=== PATIENT | male | born 1975 | race Caucasian/White ===

== ENCOUNTER 2020-03-22 14:13 | Inpatient (IN) | payer MEDICAID ==
[~2020-03-22] VITALS: Ht 152.4 cm; Wt 52.4 kg
[2020-03-22 15:36] LABS: CHLORIDE 97 mEq/L (98-107)
[2020-03-22 15:55] LABS: BASOPHILS % 0.2 % (0.0-2.0); EOSINOPHILS % 0.1 % (0.0-5.0); HEMATOCRIT. 40.2 % (42.0-52.0); HEMOGLOBIN. 14.6 g/dL (14.0-18.0); LYMPHOCYTES % 9.5 % (20.0-50.0); MEAN CORPUSCULAR HEMOGLOBIN 32.8 pg (28.0-32.0); MEAN CORPUSCULAR VOLUME 90.3 fL (80.0-94.0); MONOCYTES % 7.9 % (2.0-8.0); NEUTROPHILS % 82.3 % (40.0-76.0); PLATELET 326 x1000/uL (130-400); RED BLOOD CELL COUNT 4.45 mill/uL (4.7-6.1); RED CELL DISTRIBUTION WIDTH 13.8 % (11.6-14.6)
[2020-03-22 20:53] VITALS: BP 110/67
[2020-03-22] MEDS ORDERED: LORAZEPAM 2MG/ML CPJ IV PRN (21:00)
[2020-03-22] MEDS ORDERED: DOCUSATE SODIUM 100MG CAPSULE PO PRN (21:00)
[2020-03-22] MEDS ORDERED: HYDRALAZINE 20MG/ML VIAL IV PRN (21:00)
[2020-03-22] MEDS ORDERED: ONDANSETRON HCL 4MG/2ML INJ IV PRN (21:00)
[2020-03-22] MEDS ORDERED: CLONIDINE 0.1MG TABLET PO PRN (21:00)
[2020-03-22] MEDS ORDERED: DIPHENHYDRAMINE 50MG/ML VIAL IV PRN (21:00)
[2020-03-22] MEDS ORDERED: ACETAMINOPHEN 325MG TABLET PO PRN (21:00)
[2020-03-22] MEDS ORDERED: IPRATROPIUM/ALBUTEROL 0.5-3(2.5)MG/3ML NEB HHN PRN (21:00)
[2020-03-22] MEDS ORDERED: HYDROCODONE/ACETAMINOPHEN 10/325MG TABLET PO PRN (21:00)
[2020-03-22 22:00] VITALS: BP 118/67
[2020-03-22] MEDS ORDERED: ENOXAPARIN 40MG/0.4ML SYR SUBCUT SCH (22:00)
[2020-03-22] MEDS: CEFTRIAXONE 1 G PREMIX 50 ML IV SCH (22:53)
[2020-03-22] MEDS: SODIUM CHLORIDE 0.9% INJ 3ML FLUSH IVF SCH (22:55)
[2020-03-22] MEDS ORDERED: AZITHROMYCIN 500 MG in DEXT 5% WATER 250 ML IV NR (23:00)
[2020-03-23] VITALS: BP 119/65
[2020-03-23 04:00] VITALS: BP 100/58
[2020-03-23] MEDS: MORPHINE SULFATE 2 MG/ML CPJ (NOT FOR IM USE) IV PRN (06:03)
[2020-03-23] MEDS: SODIUM CHLORIDE 0.9% INJ 3ML FLUSH IVF SCH ×3 (06:10→22:06)
[2020-03-23 06:57] LABS: CHLORIDE 102 mEq/L (98-107)
[2020-03-23 08:00] VITALS: BP 99/54
[2020-03-23 08:40] LABS: HEMATOCRIT. 40.5 % (42.0-52.0); HEMOGLOBIN. 14.7 g/dL (14.0-18.0); MEAN CORPUSCULAR HEMOGLOBIN 33.4 pg (28.0-32.0); MEAN PLATELET VOLUME 8.9 fl (7.4-10.4); PLATELET 314 x1000/uL (130-400); RED BLOOD CELL COUNT 4.41 mill/uL (4.7-6.1); RED CELL DISTRIBUTION WIDTH 13.7 % (11.6-14.6)
[2020-03-23 12:00] VITALS: BP 100/64
[2020-03-23] MEDS: ALBUTEROL 6.7GM HFA INHALER ORI SCH (12:00)
[2020-03-23 12:24] LABS: D-DIMER 0.6 mg/L FEU (<0.50); INR 1.1; PROTHROMBIN TIME 11.2 sec (9.6-11.0)
[2020-03-23] MEDS: DEXAMETHASONE 2MG TABLET PO SCH (13:11)
[2020-03-23] MEDS ORDERED: ENOXAPARIN 80MG/0.8ML SYR SUBCUT SCH (14:00)
[2020-03-23 16:00] VITALS: BP 103/65
[2020-03-23] MEDS: GUAIFENESIN 200MG/10ML SUGAR FREE UDC PO PRN (18:15)
[2020-03-23 20:00] VITALS: BP 109/67
[2020-03-23] MEDS: CEFTRIAXONE 1 G PREMIX 50 ML IV SCH (22:06)
[2020-03-23] MEDS: AZITHROMYCIN 250 MG in DEXT 5% WATER 250 ML IV SCH (22:07)
[2020-03-24] VITALS: BP 111/68
[2020-03-24] MEDS: MORPHINE SULFATE 2 MG/ML CPJ (NOT FOR IM USE) IV PRN ×3 (03:16→23:28)
[2020-03-24 04:00] VITALS: BP 116/62
[2020-03-24] MEDS: SODIUM CHLORIDE 0.9% INJ 3ML FLUSH IVF SCH ×3 (05:01→21:32)
[2020-03-24 08:00] VITALS: BP 120/63
[2020-03-24] MEDS: ALBUTEROL 6.7GM HFA INHALER ORI SCH ×2 (09:40→21:00)
[2020-03-24] MEDS: DEXAMETHASONE 2MG TABLET PO SCH (09:56)
[2020-03-24 10:38] LABS: PLATELET ESTIMATE NORMAL
[2020-03-24 12:00] VITALS: BP 106/57
[2020-03-24] MEDS: ENOXAPARIN 80MG/0.8ML SYR SUBCUT SCH ×2 (14:32→23:27)
[2020-03-24 16:09] VITALS: BP 103/63
[2020-03-24 20:00] VITALS: BP 126/79
[2020-03-24] MEDS: CEFTRIAXONE 1 G PREMIX 50 ML IV SCH (21:07)
[2020-03-24] MEDS: AZITHROMYCIN 250 MG in DEXT 5% WATER 250 ML IV SCH (21:32)
[2020-03-24] MEDS: GUAIFENESIN 200MG/10ML SUGAR FREE UDC PO PRN (23:27)
[2020-03-25] VITALS (7 sets, daily range): BP systolic 91–114; BP diastolic 51–68
[2020-03-25] MEDS: ALBUTEROL 6.7GM HFA INHALER ORI SCH ×4 (02:30→17:31)
[2020-03-25] MEDS: SODIUM CHLORIDE 0.9% INJ 3ML FLUSH IVF SCH ×3 (05:18→21:22)
[2020-03-25] MEDS: MAGNESIUM/ALUMINUM HYDROXIDE/SIMETHICONE 30ML UDC PO PRN (05:23)
[2020-03-25 07:08] LABS: CHLORIDE 97 mEq/L (98-107)
[2020-03-25 07:14] LABS: EOSINOPHILS % 0.4 % (0.0-5.0); HEMATOCRIT. 40.3 % (42.0-52.0); HEMOGLOBIN. 14.5 g/dL (14.0-18.0); LYMPHOCYTES % 16.1 % (20.0-50.0); MEAN CORPUSCULAR HEMOGLOBIN 32.6 pg (28.0-32.0); MEAN CORPUSCULAR VOLUME 90.6 fL (80.0-94.0); MEAN PLATELET VOLUME 8.1 fl (7.4-10.4); MONOCYTES % 8.6 % (2.0-8.0); NEUTROPHILS % 74.9 % (40.0-76.0); PLATELET 418 x1000/uL (130-400); RED BLOOD CELL COUNT 4.44 mill/uL (4.7-6.1); RED CELL DISTRIBUTION WIDTH 13.5 % (11.6-14.6)
[2020-03-25] MEDS: ENOXAPARIN 80MG/0.8ML SYR SUBCUT SCH ×2 (08:22→21:22)
[2020-03-25] MEDS: DEXAMETHASONE 2MG TABLET PO SCH (08:23)
[2020-03-25 13:59] LABS: CLARITY URINE CLEAR (CLEAR); COLOR URINE YELLOW (YELLOW); KETONES URINE NEGATIVE (NEGATIVE); LEUKOCYTE ESTERASE URINE NEGATIVE (NEGATIVE); NITRITE URINE NEGATIVE (NEGATIVE); OCCULT BLOOD URINE NEGATIVE (NEGATIVE); PROTEIN URINE NEGATIVE (NEGATIVE); SPECIFIC GRAVITY URINE 1.015 (1.005-1.030); UROBILINOGEN URINE 0.2 E.U./dL (0.2-1.0)
[2020-03-25 14:22] LABS: *AMPHETAMINES SCREEN URINE NEGATIVE (NEGATIVE); *BARBITURATES SCREEN URINE NEGATIVE (NEGATIVE); *BENZODIAZEPINES SCREEN URINE NEGATIVE (NEGATIVE)
[2020-03-25 14:23] LABS: *COCAINE SCREEN URINE NEGATIVE (NEGATIVE); CANNABINOID URINE SCREEN NEGATIVE (NEGATIVE); METHADONE URINE SCREEN NEGATIVE (NEGATIVE); OPIATES URINE SCREEN PRESUMTIVE POSITIVE (NEGATIVE); PHENCYCLIDINE URINE SCREEN NEGATIVE (NEGATIVE)
[2020-03-25] MEDS: GUAIFENESIN 200MG/10ML SUGAR FREE UDC PO PRN (18:08)
[2020-03-25] MEDS: AZITHROMYCIN 250 MG in DEXT 5% WATER 250 ML IV SCH (20:11)
[2020-03-25] MEDS: CEFTRIAXONE 1 G PREMIX 50 ML IV SCH (21:21)
[2020-03-26] VITALS: BP 92/51
[2020-03-26] MEDS: ALBUTEROL 6.7GM HFA INHALER ORI SCH ×4 (00:17→18:24)
[2020-03-26 04:00] VITALS: BP 101/60
[2020-03-26] MEDS: SODIUM CHLORIDE 0.9% INJ 3ML FLUSH IVF SCH ×3 (05:28→21:55)
[2020-03-26 08:00] VITALS: BP 100/59
[2020-03-26] MEDS: DEXAMETHASONE 2MG TABLET PO SCH (08:52)
[2020-03-26] MEDS: ENOXAPARIN 80MG/0.8ML SYR SUBCUT SCH ×2 (08:52→20:25)
[2020-03-26 12:00] VITALS: BP 97/55
[2020-03-26] MEDS ORDERED: POLYVINYL ALCOHOL OPHTH DROPS 15ML BOTHEYE PRN (12:00)
[2020-03-26 16:00] VITALS: BP 114/62
[2020-03-26 20:00] VITALS: BP 111/72
[2020-03-26] MEDS: CEFTRIAXONE 1 G PREMIX 50 ML IV SCH (20:23)
[2020-03-26] MEDS: AZITHROMYCIN 250 MG in DEXT 5% WATER 250 ML IV SCH (20:24)
[2020-03-27] VITALS: BP 102/60
[2020-03-27] MEDS: ALBUTEROL 6.7GM HFA INHALER ORI SCH ×4 (00:47→23:51)
[2020-03-27 04:00] VITALS: BP 103/64
[2020-03-27] MEDS: SODIUM CHLORIDE 0.9% INJ 3ML FLUSH IVF SCH ×3 (05:58→21:43)
[2020-03-27 08:00] VITALS: BP 92/57
[2020-03-27] MEDS: DEXAMETHASONE 2MG TABLET PO SCH (09:17)
[2020-03-27] MEDS: ENOXAPARIN 80MG/0.8ML SYR SUBCUT SCH (09:17)
[2020-03-27 12:00] VITALS: BP 101/61
[2020-03-27 16:00] VITALS: BP 99/65
[2020-03-27 20:00] VITALS: BP 107/69
[2020-03-27] MEDS: ENOXAPARIN 60MG/0.6ML SYR SUBCUT SCH (20:41)
[2020-03-28 00:05] VITALS: BP 104/66
[2020-03-28 04:00] VITALS: BP 110/66
[2020-03-28] MEDS: ALBUTEROL 6.7GM HFA INHALER ORI SCH ×3 (05:36→18:44)
[2020-03-28 08:00] VITALS: BP 101/63
[2020-03-28] MEDS: ENOXAPARIN 60MG/0.6ML SYR SUBCUT SCH ×2 (08:19→20:37)
[2020-03-28] MEDS: DEXAMETHASONE 2MG TABLET PO SCH (10:33)
[2020-03-28 12:00] VITALS: BP 105/66
[2020-03-28] MEDS ORDERED: REMDESIVIR 200 MG in SODIUM CHLORIDE 0.9% 250 ML IV NR (15:30)
[2020-03-28 16:00] VITALS: BP 108/66
[2020-03-28] MEDS: SODIUM CHLORIDE 0.9% INJ 3ML FLUSH IVF SCH ×2 (16:42→20:37)
[2020-03-28 20:00] VITALS: BP 109/63
[2020-03-29] VITALS: BP 112/64
[2020-03-29] MEDS: ALBUTEROL 6.7GM HFA INHALER ORI SCH ×4 (00:22→17:14)
[2020-03-29 04:00] VITALS: BP 113/59
[2020-03-29] MEDS: SODIUM CHLORIDE 0.9% INJ 3ML FLUSH IVF SCH ×3 (05:09→21:16)
[2020-03-29 08:00] VITALS: BP 109/60
[2020-03-29 08:41] LABS: CHLORIDE 104 mEq/L (98-107)
[2020-03-29] MEDS: DEXAMETHASONE 2MG TABLET PO SCH (09:24)
[2020-03-29] MEDS: ENOXAPARIN 60MG/0.6ML SYR SUBCUT SCH ×2 (09:25→21:16)
[2020-03-29 12:30] VITALS: BP 112/54
[2020-03-29] MEDS: REMDESIVIR 100 MG in SODIUM CHLORIDE 0.9% 250 ML IV SCH (14:10)
[2020-03-29 15:58] VITALS: BP 108/62
[2020-03-29 20:00] VITALS: BP 113/66
[2020-03-30] VITALS: BP 103/61
[2020-03-30] MEDS: ALBUTEROL 6.7GM HFA INHALER ORI SCH ×4 (00:12→18:42)
[2020-03-30 04:00] VITALS: BP 96/53
[2020-03-30] MEDS: SODIUM CHLORIDE 0.9% INJ 3ML FLUSH IVF SCH ×3 (05:45→20:45)
[2020-03-30 08:00] VITALS: BP 103/53
[2020-03-30 08:23] LABS: CHLORIDE 102 mEq/L (98-107)
[2020-03-30] MEDS: DEXAMETHASONE 2MG TABLET PO SCH (09:44)
[2020-03-30] MEDS: ENOXAPARIN 60MG/0.6ML SYR SUBCUT SCH ×2 (09:44→20:44)
[2020-03-30 12:00] VITALS: BP 102/52
[2020-03-30] MEDS: REMDESIVIR 100 MG in SODIUM CHLORIDE 0.9% 250 ML IV SCH (15:06)
[2020-03-30 16:00] VITALS: BP 116/64
[2020-03-30 20:00] VITALS: BP 100/55
[2020-03-31] VITALS: BP 107/66
[2020-03-31] MEDS: ALBUTEROL 6.7GM HFA INHALER ORI SCH ×5 (00:03→23:49)
[2020-03-31 04:00] VITALS: BP 94/53
[2020-03-31] MEDS: SODIUM CHLORIDE 0.9% INJ 3ML FLUSH IVF SCH ×3 (05:14→21:21)
[2020-03-31 07:23] LABS: CHLORIDE 104 mEq/L (98-107)
[2020-03-31 08:00] VITALS: BP 103/51
[2020-03-31] MEDS: DEXAMETHASONE 2MG TABLET PO SCH (08:18)
[2020-03-31] MEDS: ENOXAPARIN 60MG/0.6ML SYR SUBCUT SCH ×2 (08:18→21:21)
[2020-03-31 11:46] VITALS: BP_SYST 103; BP_SYST 96; BP_DIAS 63; BP_DIAS 82
[2020-03-31] MEDS: REMDESIVIR 100 MG in SODIUM CHLORIDE 0.9% 250 ML IV SCH (15:00)
[2020-03-31 20:00] VITALS: BP 112/59
[2020-04-01] VITALS: BP 118/65
[2020-04-01 04:00] VITALS: BP 99/49
[2020-04-01] MEDS: SODIUM CHLORIDE 0.9% INJ 3ML FLUSH IVF SCH ×2 (05:18→13:01)
[2020-04-01] MEDS: ALBUTEROL 6.7GM HFA INHALER ORI SCH ×3 (05:18→17:11)
[2020-04-01 08:00] VITALS: BP 94/53
[2020-04-01 08:16] LABS: CHLORIDE 104 mEq/L (98-107)
[2020-04-01] MEDS: DEXAMETHASONE 2MG TABLET PO SCH (09:47)
[2020-04-01] MEDS: ENOXAPARIN 60MG/0.6ML SYR SUBCUT SCH (09:48)
[2020-04-01 10:32] LABS: BASOPHILS % 0.2 % (0.0-2.0); EOSINOPHILS % 0.2 % (0.0-5.0); HEMATOCRIT. 37.2 % (42.0-52.0); HEMOGLOBIN. 13.2 g/dL (14.0-18.0); LYMPHOCYTES % 22.8 % (20.0-50.0); MEAN CORPUSCULAR HEMOGLOBIN 33.2 pg (28.0-32.0); MEAN CORPUSCULAR VOLUME 93.7 fL (80.0-94.0); MEAN PLATELET VOLUME 8.8 fl (7.4-10.4); MONOCYTES % 5.7 % (2.0-8.0); NEUTROPHILS % 71.1 % (40.0-76.0); PLATELET 225 x1000/uL (130-400); RED BLOOD CELL COUNT 3.97 mill/uL (4.7-6.1); RED CELL DISTRIBUTION WIDTH 14.5 % (11.6-14.6)
[2020-04-01 12:00] VITALS: BP 99/59
[2020-04-01] MEDS: REMDESIVIR 100 MG in SODIUM CHLORIDE 0.9% 250 ML IV SCH (14:59)
[2020-04-01 16:00] VITALS: BP 96/63
[2020-04-01] MEDS: MAGNESIUM/ALUMINUM HYDROXIDE/SIMETHICONE 30ML UDC PO PRN (18:16)
== END 2020-04-01 19:25 | disposition home or self-care (01) | DRG 720 ==
LOC: ER 14:13 → EDBEDREQTM 14:42 → EDBEDREQ 14:42 → 7WST 15:55 → EDBEDREQ 16:02 → EDBEDREQTM 16:02 → ENRESERV 19:06
PROVIDERS: ADMIT Internal Medicine; ATTEND Internal Medicine
PROC: 30233M1 Transfusion of Nonautologous Plasma Cryoprecipitate into Peripheral Vein, Percutaneous Approach (ICD-10-PCS; principal; 2020-03-27)
DX: A41.89 Other specified sepsis (principal); U07.1 COVID-19; J96.01 Acute respiratory failure with hypoxia; K72.00 Acute and subacute hepatic failure without coma; J12.89 Other viral pneumonia; E46 Unspecified protein-calorie malnutrition; E86.0 Dehydration; B97.89 Other viral agents as the cause of diseases classified elsewhere; D72.810 Lymphocytopenia; R74.0 Nonspecific elevation of levels of transaminase and lactic acid dehydrogenase [LDH]; Z68.22 Body mass index [BMI] 22.0-22.9, adult; Z79.899 Other long term (current) drug therapy
CPT/HCPCS: 36415; 71045; 80048; 80053; 80305; 81003; 83880; 84484; 85025; 85379; 85384; 86850; 86900; 86927; 87635; 93005; 96365; 99291; J0456; J0696; J1650; J2270; J7050; J7060; J8540; P9017; Q9957